=== PATIENT | female | born 1990 | race African-American/Black ===

== ENCOUNTER 2016-11-07 13:08 | Emergency (ER) | payer OTHER ==
--- NOTE | ~2016-11-07 | CT71 ---
[facility] RADIOLOGY TEXT RESULTS PATIENT: NATHANIEL CONSTANTINO LOCATION: [facility] : [birth year] UNIT #: [id number] AGE: [address]: Oni Villasenor MD SEX: F ORDER DR: [id number] [facility]. [place], [place] [address] [id number] MR#: [id number] Acc #: [id number] NAME: NATHANIEL CONSTANTINO : 1990 SEX: F STUDY DATE/TIME: 11/07/2016 15:34 UNIT: [facility] ROOM: STUDY DESCRIPTION: CT Head Wo Contrast Attending Physician: Oni Villasenor M.D. Ordering Physician: Oni Villasenor M.D. Primary Care Physician: No Primary Care Physician MEDICAL IMAGING REPORT This report is preliminary unless electronic signature is present EXAM CT scan of the head without contrast, 11/07/2016. HISTORY Headache for 3-4 days. TECHNIQUE Axial noncontrast images were obtained from the skull base to the vertex. This CT exam was performed with one or more of the following radiation dose reduction techniques: automatic exposure control, adjustment of mA and/or kV according to patient size, and iterative reconstruction. FINDINGS Ventricular size and configuration are normal. There is no evidence of acute infarct or hemorrhage. There are no extra-axial fluid collections. No mass lesion or mass effect is seen. There are no skull fractures. IMPRESSION Normal noncontrast head CT. Dictated by... Gutierrez Escalera M.D. THIS IS AN ELECTRONICALLY VERIFIED REPORT Gutierrez Escalera M.D. at 11/08/2016 6:47 PM HIRAM/bam TD: 11/07/2016 19:13 JOB #: [id number] [facility] A Service [facility] RADIOLOGY TEXT RESULTS PATIENT: NATHANIEL CONSTANTINO LOCATION: [facility] : [birth year] UNIT #: [id number] AGE: [address]: Oni Villasenor MD SEX: F ORDER DR: MEDICAL IMAGING REPORT Page 1 of 1 COPY
== END 2016-11-07 16:48 | disposition home or self-care (01) ==
LOC: CED 13:08
DX: O9A.212 Injury, poisoning and certain other consequences of external causes complicating pregnancy, second trimester (principal); S00.86XA Insect bite (nonvenomous) of other part of head, initial encounter; Z3A.25 25 weeks gestation of pregnancy; W57.XXXA Bitten or stung by nonvenomous insect and other nonvenomous arthropods, initial encounter
CPT/HCPCS: 70450; 96361; 96374; 96375; 99284; J1200; J2765